=== PATIENT | female | born 1995 | race Caucasian/White ===

== ENCOUNTER 2024-09-07 10:06 | Outpatient (AMB) | payer BC, SELFPAY ==
--- NOTE | 2024-09-07 10:20 | MHC.PC.OV ---
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 Intake Note: Pt is here today as a New Patient to est care/PE Allergies No Known Allergies Allergy (Verified 09/07/24 10:35) Medication List - Last Reconciled 09/07/24 by Steff Wagner MD ascorbic acid (vitamin C) mg PO ashwagandha extract mg PO cholecalciferol (vitamin D3) 50 mcg PO DAILY ferrous sulfate 325 mg PO DAILY magnesium 250 mg PO DAILY mecobalamin (vitamin B12) 1,000 mcg sublingual BEDTIME norgestrel (Opill) 1 tab PO DAILY valerian 1,000 mg PO BEDTIME PRN Tobacco use date assessed: 09/07/24 Dental Screening Dental Screen Date: 09/07/24 Did you have a dental visit in the last 12 months?: Yes Did you have a dental problem in the last 6 months where you did not have access to dental care?: No Was dental information given to patient?: Patient has dentist HPI blood sugar est care ophthalmic dispenser HPI Details 28-year-old lady, new to practice, here to establish care with a new PCP and for physical exam. She has history of vitamin-D deficiency, IBS, generalized anxiety disorder and history of iron-deficiency anemia. Currently taking herbal supplements to help control her anxiety, does not want to start any prescription medicine at present time. She has been able to control her anxiety attacks through behavioral techniques, and previously was seen by therapist for 3 years.. She currently is on gxac-fya-dewtqre control pills, but has never had a Pap smear or pelvic exam. She is currently sexually active. She has had COVID vaccines in the past but does not want to get the booster, reminded to get her yearly flu shot, up-to-date with her Tdap [facility] Medical History (Updated 09/07/24 @ 11:00 by Steff Wagner MD) Family history of thyroid disorder History of vitamin D deficiency Irritable bowel syndrome Anxiety disorder History of iron deficiency anemia History of congenital dysplasia of hip History of cystic acne History of dislocation of shoulder Surgical History (Updated 09/07/24 @ 10:45 by Steff Wagner MD) No pertinent past surgical history Family History (Updated 09/07/24 @ 10:38 by Steff Wagner MD) Mother Hypothyroidism Diabetes mellitus Depression Father Diabetes mellitus Depression Maternal Grandmother Breast cancer, Onset Age: 80 Paternal Uncle Non-Hodgkins lymphoma Paternal Grandmother Parkinson's disease Social History (Updated 09/07/24 @ 10:43 by Steff Wagner MD) Household Members Other:: Lives with sister Housing: Apartment Are you a primary day care center director to a significant other at home: No Do you presently have visiting nurse or other home services: No Alcohol intake: never Patient Tobacco Use Status: Never used Tobacco e-Cigarette/Vaping Use: Never Used service: No Current occupational status: employed Cognitive needs: No Hearing needs: No Vision needs: Yes Questionnaire PHQ-9 Over the last 2 weeks, how often have you been bothered by any of the following problems? 1. Little interest or pleasure in doing things: not at all 2. Feeling down, depressed, or hopeless: not at all 3. Trouble falling or staying asleep, or sleeping too much: not at all 4. Feeling tired or having little energy: several days 5. Poor appetite or overeating: not at all 6. Feeling bad about yourself - or that you are a failure or have let yourself or your family down: not at all 7. Trouble concentrating on things, such as reading the newspaper or watching television: not at all 8. Moving or speaking so slowly that other people could have noticed. Or the opposite - being so fidgety or restless that you have been moving around a lot more than usual: not at all 9. Thoughts that you would be better off or of hurting yourself in some way: not at all Total score: 1 Depression Screening Interpretation: Negative Depression Screening Done: Yes 47050 - PHQ-9 Billing: Yes Source: Developed by Drs. Jerrell Warner, Lisa Trejo, Cornelio Martinez and colleagues, with an educational monica from [employer]. Thrive Questionnaire Date Thrive assessed: 08/31/24 I am a: Patient What is your living situation today?: I have a steady place to live Within the past 12 months, did the food you bought not last and you didn't have the money to get more?: Never true Within the past 12 months, did you worry whether your food would run out before you got money to buy more?: Never true Do you have trouble paying for medicines?: No Do you have trouble getting transportation to medical appointments?: No Do you have trouble paying your heating and electricity bill?: No Do you have trouble taking care of your child, family member or friend?: No Do you have trouble with day-to-day activities such as bathing, preparing meals, shopping, managing finances, etc.?: No Are you currently unemployed and looking for a job?: No Are you interested in more education?: I choose not to answer this question Please select the resources that you would like help with: None Currently or been in a relationship where the following occur: No concerns reported THRIVE Score: 0 AUDIT C Alcohol Use Questionnaire (AUDIT-C) 1. How often do you have a drink containing alcohol?: Never 2. How many drinks containing alcohol do you have on a typical day when you are drinking?: 1 or 2 3. How often do you have six or more drinks on one occasion?: Never Total Score: 0 DESRIEE-7 AMB Questionnaire DESIREE-7 Date DESIREE - 7 assessed: 09/07/24 Feeling nervous, anxious, or on edge: 2 = More than half the days Not being able to stop or control worryin = Nearly every day Worrying too much about different things: 2 = More than half the days Trouble relaxin = Several days Being so restless that it is hard to sit still: 1 = Several days Becoming easily annoyed or irritable: 1 = Several days Feeling afraid as if something awful might happen: 1 = Several days Total DESIREE-7 score (0-4 normal; 5-9 mild; 10-14 moderate; 15-21 severe): 11 Source: Developed by Drs. Jerrell Warner, Lisa Trejo, Cornelio Martinez and colleagues, with an educational monica from [employer]. DESIREE-7 Assessment Billing DESIREE-7 Assessment Tool: DESIREE-7 Assessment 29980 (Saw a therapist regularly for 3 years, not ready to start any medication at present.) Review of Systems Const Reports no additional complaints Eyes Details: Goes to [facility] eye [facility] Details: Up-to-date with her dental exams every 6 month Card Reports no additional complaints Resp Reports no additional complaints GI Denies abdominal pain, Denies change in bowel habits, Denies change in stool character and Denies heartburn Reports no additional complaints Musc Reports no additional complaints Skin/Breast Denies breast swelling, Denies breast skin changes, Denies breast pain and Denies rash Neuro Reports no additional complaints Psych Reports as per HPI Endo Reports no additional complaints Doni/Lymph Reports no additional complaints Aller/Immun Reports no additional complaints Physical exam (Primary Care) Vital Signs: Last Vital Signs Temp 99.2 F 09/07/24 10:26 Pulse 98 09/07/24 10:26 Resp 17 09/07/24 10:26 BP 124/86 09/07/24 10:26 Pulse Ox 100 09/07/24 10:26 Oxygen Delivery Method Room Air 09/07/24 10:26 BMI result Body Mass Index 34.3 Tobacco/Smoking Status: Tobacco use Status Tobacco use date assessed 09/07/24 09/07/24 10:37 Patient Tobacco Use Status Never used Tobacco 09/07/24 10:43 e-Cigarette/Vaping Use Never Used 09/07/24 10:43 PHQ-9: PHQ-9 Score PHQ-9: Total score 1 09/07/24 10:51 Depression Screening Interpretation: Negative Thrive Assessment: Date of Thrive Assessment Date Thrive assessed 08/31/24 09/07/24 10:37 Currently or been in a relationship where the following occur: No concerns reported Const General: no acute distress and alert Orientation/consciousness: patient oriented x3 HENMT Head: Yes normocephalic Ears: external ears normal, TM's normal bilaterally and EAC's normal General nose exam: Normal external nose present Mouth: Normal oral and palatal mucosa present, oropharynx normal and moist mucous membranes Eyes General: appearance normal, both eyes and all related structures Eyelids: Yes eyelids normal Conjunctivae: conjunctivae normal Sclerae: sclerae normal Pupils: Equal, round and reactive pupils present EOM: EOMs intact bilaterally Neck Neck: Yes full ROM, Yes no lymphadenopathy and Yes supple Thyroid: Thyroid normal Chest Breast/axilla palpation: normal palpation of the breasts Resp Effort & Inspection: normal respiratory effort and able to speak in complete sentences Auscultation: clear to auscultation bilaterally Cardio Rate: regular rate Rhythm: regular rhythm Heart sounds: S1 normal heart sound present and S2 normal heart sound present GI Palpation (GI): Soft to palpation, nontender, no guarding and no masses Auscultation: normal bowel sounds General: Yes no CVA tenderness Back/Spine/Pelvis Back: no CVA tenderness and No back tenderness Skin General skin exam: no rashes or lesions noted Neuro General: patient oriented x3, gait normal, moves all extremities, Normal light touch and pain sensation, no focal motor deficits and CN's II-XI intact bilaterally Cranial nerves: Yes Equal, round and reactive pupils present Cognition (Neuro): normal cognition Gait exam (Neuro): Normal gait present Motor exam (neuro): 5/5 motor strength present throughout Extrem General: Yes normal to inspection, Yes full ROM, Yes no joint enlargement, Yes no pedal edema and Yes normal gait Psych Appearance: grossly normal and well kempt Mental Status: mental status grossly normal Speech and movement: Normal speech and movement present Affect: normal affect Attitude: cooperative Thought process: Normal thought process present Thought content: Normal thought content present Coding Level of Care Code New Pt Prev Care 18-39yr(49107 Diagnoses Annual visit for general adult medical examination with abnormal findings Z00.01 Screening for malignant neoplasm of cervix Z12.4 History of iron deficiency anemia Z86.2 Anxiety disorder F41.9 History of vitamin D deficiency Z86.39 Advanced directives, counseling/discussion Z71.89 Additional Codes DESIREE-7 Assessment Billing - DESIREE-7 Assessment Tool: DESIREE-7 Assessment 69177 ([id number]) PHQ-9 - 74853 - PHQ-9 Billing: Yes ([id number]) Assessment & Plan Assessment & Plan (1) Annual visit for general adult medical examination with abnormal findings: Code(s): Z00.01 - Encounter for general adult medical examination with abnormal findings Plan: Will check appropriate labs. Recommended dental visit every 6 months and regular eye exams, at least every 2 years. Take adequate calcium in diet and vitamin-D 3 at 2000 IU per cap once a day, in addition to weight-bearing exercises to help maintain good muscle tone and weight control. Instructed to do self-breast exam, and recommended to get yearly mammogram, starting at age 40. Referred to [facility] for her routine Pap and pelvic exam. Reminded to get yearly flu vaccine, up-to-date with Tdap (2) Screening for malignant neoplasm of cervix: Code(s): Z12.4 - Encounter for screening for malignant neoplasm of cervix Plan: OBGYN referral ordered her initial cervical cancer screening and pelvic exam (3) History of iron deficiency anemia: Code(s): Z86.2 - Personal history of diseases of the blood and blood-forming organs and certain disorders involving the immune mechanism Category: Medical Plan: Ordered CBC , vitamin B12, iron profile and vitamin-D level (4) Anxiety disorder: Code(s): F41.9 - Anxiety disorder, unspecified Category: Medical Plan: Currently controlled with behavioral techniques, declines referral for therapy or starting any medication at present time. (5) History of vitamin D deficiency: Code(s): Z86.39 - Personal history of other endocrine, nutritional and metabolic disease Category: Medical Plan: Will check vitamin-D level (6) Advanced directives, counseling/discussion: Code(s): Z71.89 - Other specified counseling Plan: Initiated the conversation about Advanced Directives. Advanced Directives help patients prepare for current and future decisions about their medical treatment and place of care. Discussed with patient that it is a process where a patients current condition and prognosis are reviewed, their wishes for information regarding their illness are elicited, and likely medical dilemmas are presented and options discussed. Healthcare proxy form completed today. The form can be amended as needed, reviewed yearly and make changes as needed Orders: Orders Lipid Panel 09/07/24 F41.9 - Anxiety disorder, unspecified, K58.9 - Irritable bowel syndrome, unspecified, Z13.1 - Encounter for screening for diabetes mellitus, Z13.220 - Encounter for screening for lipoid disorders, Z83.49 - Family history of other endocrine, nutritional and metabolic diseases, Z86.2 - Personal history of diseases of the blood and blood-forming organs and certain disorders involving the immune mechanism, Z86.39 - Personal history of other endocrine, nutritional and metabolic disease Alanine Aminotransferase 09/07/24 F41.9 - Anxiety disorder, unspecified, K58.9 - Irritable bowel syndrome, unspecified, Z13.1 - Encounter for screening for diabetes mellitus, Z13.220 - Encounter for screening for lipoid disorders, Z83.49 - Family history of other endocrine, nutritional and metabolic diseases, Z86.2 - Personal history of diseases of the blood and blood-forming organs and certain disorders involving the immune mechanism, Z86.39 - Personal history of other endocrine, nutritional and metabolic disease Vitamin D 25-OH Total 09/07/24 F41.9 - Anxiety disorder, unspecified, K58.9 - Irritable bowel syndrome, unspecified, Z13.1 - Encounter for screening for diabetes mellitus, Z13.220 - Encounter for screening for lipoid disorders, Z83.49 - Family history of other endocrine, nutritional and metabolic diseases, Z86.2 - Personal history of diseases of the blood and blood-forming organs and certain disorders involving the immune mechanism, Z86.39 - Personal history of other endocrine, nutritional and metabolic disease TSH reflex Free T4 09/07/24 F41.9 - Anxiety disorder, unspecified, K58.9 - Irritable bowel syndrome, unspecified, Z13.1 - Encounter for screening for diabetes mellitus, Z13.220 - Encounter for screening for lipoid disorders, Z83.49 - Family history of other endocrine, nutritional and metabolic diseases, Z86.2 - Personal history of diseases of the blood and blood-forming organs and certain disorders involving the immune mechanism, Z86.39 - Personal history of other endocrine, nutritional and metabolic disease Vitamin B12 and Folate 09/07/24 F41.9 - Anxiety disorder, unspecified, K58.9 - Irritable bowel syndrome, unspecified, Z13.1 - Encounter for screening for diabetes mellitus, Z13.220 - Encounter for screening for lipoid disorders, Z83.49 - Family history of other endocrine, nutritional and metabolic diseases, Z86.2 - Personal history of diseases of the blood and blood-forming organs and certain disorders involving the immune mechanism, Z86.39 - Personal history of other endocrine, nutritional and metabolic disease Magnesium 09/07/24 F41.9 - Anxiety disorder, unspecified, K58.9 - Irritable bowel syndrome, unspecified, Z13.1 - Encounter for screening for diabetes mellitus, Z13.220 - Encounter for screening for lipoid disorders, Z83.49 - Family history of other endocrine, nutritional and metabolic diseases, Z86.2 - Personal history of diseases of the blood and blood-forming organs and certain disorders involving the immune mechanism, Z86.39 - Personal history of other endocrine, nutritional and metabolic disease Complete Blood Count Auto Diff 09/07/24 F41.9 - Anxiety disorder, unspecified, K58.9 - Irritable bowel syndrome, unspecified, Z13.1 - Encounter for screening for diabetes mellitus, Z13.220 - Encounter for screening for lipoid disorders, Z83.49 - Family history of other endocrine, nutritional and metabolic diseases, Z86.2 - Personal history of diseases of the blood and blood-forming organs and certain disorders involving the immune mechanism, Z86.39 - Personal history of other endocrine, nutritional and metabolic disease IRON PROFILE 09/07/24 F41.9 - Anxiety disorder, unspecified, K58.9 - Irritable bowel syndrome, unspecified, Z13.1 - Encounter for screening for diabetes mellitus, Z13.220 - Encounter for screening for lipoid disorders, Z83.49 - Family history of other endocrine, nutritional and metabolic diseases, Z86.2 - Personal history of diseases of the blood and blood-forming organs and certain disorders involving the immune mechanism, Z86.39 - Personal history of other endocrine, nutritional and metabolic disease Basic Metabolic Panel Fasting 09/07/24 F41.9 - Anxiety disorder, unspecified, K58.9 - Irritable bowel syndrome, unspecified, Z13.1 - Encounter for screening for diabetes mellitus, Z13.220 - Encounter for screening for lipoid disorders, Z83.49 - Family history of other endocrine, nutritional and metabolic diseases, Z86.2 - Personal history of diseases of the blood and blood-forming organs and certain disorders involving the immune mechanism, Z86.39 - Personal history of other endocrine, nutritional and metabolic disease Aspartate Amino Transferase 09/07/24 F41.9 - Anxiety disorder, unspecified, K58.9 - Irritable bowel syndrome, unspecified, Z13.1 - Encounter for screening for diabetes mellitus, Z13.220 - Encounter for screening for lipoid disorders, Z83.49 - Family history of other endocrine, nutritional and metabolic diseases, Z86.2 - Personal history of diseases of the blood and blood-forming organs and certain disorders involving the immune mechanism, Z86.39 - Personal history of other endocrine, nutritional and metabolic disease Referrals [facility] Referral Z12.4 - Encounter for screening for malignant neoplasm of cervix
[2024-09-07 10:26] VITALS: BP 124/86; PULSE 98; RESP 17; TEMP 37.3; O2SAT 100; BMI 34.3
== END 2024-09-07 11:12 | disposition home or self-care (01) ==
PROVIDERS: PCP Internal Medicine; Visit Provider Internal Medicine
DX: Z00.01 Encounter for general adult medical examination with abnormal findings (principal); Z12.4 Encounter for screening for malignant neoplasm of cervix; Z86.2 Personal history of diseases of the blood and blood-forming organs and certain disorders involving the immune mechanism; F41.9 Anxiety disorder, unspecified; Z86.39 Personal history of other endocrine, nutritional and metabolic disease; Z71.89 Other specified counseling

== ENCOUNTER → 2024-09-07 10:06 | Outpatient (BNVA) | payer BC, SELFPAY | PROVIDERS: Visit Provider Internal Medicine | DX: Z00.01 Encounter for general adult medical examination with abnormal findings (principal); F41.9 Anxiety disorder, unspecified; Z86.2 Personal history of diseases of the blood and blood-forming organs and certain disorders involving the immune mechanism; Z86.39 Personal history of other endocrine, nutritional and metabolic disease; Z71.89 Other specified counseling | CPT/HCPCS: 96127 ==

== ENCOUNTER 2025-01-26 06:22 | Outpatient (REF) | payer BC, SELFPAY ==
--- OUTSIDE RECORDS SUMMARY | 2025-01-26 06:26 | XMS_ITS | Encounter Summary ---
Author Organization [facility] Address [address] [place] [address] Care Team Providers Care Sleeve Ironer Name Role Phone Maura Bee MD Primary Care Provider [phone] Encounter Details Date Type Department Care Team (Late st Contact Info) Description 06/24/2022 Community Orders [facility] [address] [place] [address] Rina Mccarthy PA [address] [place] [address] Routine general medical examination at a health care facility (Primary Dx) Social History Tobacco Use Types Packs/Day Years Used Date Smoking Tobacco: Never Assessed Comments Unknown Sex and Gender Information Value Date Recorded Sex Assigned at Not on file Legal Sex Female 18:20 EST Gender Identity Not on file Sexual Orientation Not on file documented as of this encounter Plan of Treatment Not on file documented as of this encounter Results * VITAMIN B12 (06/24/2022 7:00 EST) Vitamin B12 378 211 - 911 pg/mL 06/24/2022 14:13 EST [facility] Blood VENOUS BLOOD / Unknown Venipuncture / Unknown 06/24/2022 7:00 EST 06/24/2022 12:44 EST Narrative [facility] - 06/24/2022 14:13 EST The results of this assay can be falsely elevated due to the consumption of Biotin. Rina XIE CHEMISTRY & BLOOD GAS ORDERAB LES Final Result [facility] [address] [place] [address] * COMPREHENSIVE METABOLIC PANEL (CMP) (06/24/2022 7:00 EST) Sodium 140 136 - 145 mmol/L 06/24/2022 13:20 [facility] Potassium 4.2 3.5 - 5.0 mmol/L 06/24/2022 13:20 [facility] Chloride 105 96 - 110 mmol/L 06/24/2022 13:20 [facility] CO2 Total 24 22 - 32 mmol/L 06/24/2022 13:20 [facility] Glucose 78 70 - 100 mg/dL 06/24/2022 13:20 [facility] BUN 13 10 - 26 mg/dL 06/24/2022 13:20 [facility] Creatinine 0.58 0.52 - 1.04 mg/dL 06/24/2022 13:20 [facility] eGFR 130 >60 mL/min/1.7 3m2 06/24/2022 13:20 [facility] Total Protein 7.3 6.3 - 8.2 g/dL 06/24/2022 13:20 [facility] Albumin 4.3 3.4 - 4.9 g/dL 06/24/2022 13:20 [facility] Alkaline Phosphatase 86 38 - 126 U/L 06/24/2022 13:20 [facility] AST 23 15 - 46 U/L 06/24/2022 13:20 [facility] ALT 17 <35 U/L 06/24/2022 13:20 [facility] Bilirubin, Total 0.2 <1.4 mg/dL 06/24/20 13:20 [facility] Calcium 8.8 8.5 - 10.5 mg/dL 06/24/2022 13:20 [facility] Albumin/Globulin Ratio 1.4 1.0 - 2.5 06/24/2022 13:20 [facility] Anion Gap 11 5 - 14 06/24/2022 13:20 [facility] Blood VENOUS BLOOD / Unknown Venipuncture / Unknown 06/24/2022 7:00 EST 06/24/2022 12:44 EST us Rina XIE CHEMISTRY & BLOOD GAS ORDERAB LES Final Result Performing Organization Address [facility]/State/ZIP Co de Phone Number [facility] [address] [place] [address] * LIPID PROFILE (INCLUDES CHOLESTEROL, TRIGLYCERIDES, HDL, LDL) (06/24/2022 7:00 EST) Cholesterol 138 <200 mg/dL 06/24/2022 13:20 [facility] Comment:Note that therapeuti c goals will differ between patients based on cardiac risk factors and current medical therapy. HDL 52 >=50 mg/dL 06/24/2022 13:20 [facility] Comment:Note that therapeuti c goals will differ between patients based on cardiac risk factors and current medical therapy. LDL, Calculated 66 <160 mg/dL 13:20 [facility] Comment:Note that therapeuti c goals will differ between patients based on cardiac risk factors and current medical therapy. Triglyceride 101 <=150 mg/dL 06/24/2022 13:20 [facility] Comment:Note that therapeuti c goals will differ between patients based on cardiac risk factors and current medical therapy. Chol/HDL Ratio 2.7 See Note 06/24/2022 13:20 [facility] Comment: NOTE: Desirable Ratio = <4.1 Patient At Risk Ratio = >5.0(Males) >6.0(Females) Non HDL Cholesterol 86 <160 mg/dL 06/24/2022 13:20 [facility] Comment:Note that therapeuti c goals will differ between patients based on cardiac risk factors and current medical therapy. Blood VENOUS BLOOD / Unknown Venipuncture / Unknown 06/24/2022 7:00 EST 06/24/2022 12:44 EST us Rina XIE CHEMISTRY & BLOOD GAS ORDERAB LES Final Result [facility] [address] [place] [address] documented in this encounter Visit Diagnoses Diagnosis Routine general medical examination at a health care facility- Primary documented in this encounter Care Teams Sleeve Ironer Relationship Specialty Start Date End Date Maura Bee MD [address] [place] [address] PCP - General 05/12/15 documented as of this encounter
[2025-01-26 10:16] LABS: MANUAL DIFF FLAG NO
[2025-01-26 10:20] LABS: Hematocrit 39.3 % (37.0-47.0); Hemoglobin 13.2 g/dl (12.0-16.0); Imm Gran Abs Auto 0.03 X10*3/uL (0.00-0.03); Imm Gran Pct Auto 0.3 % (0.0-0.4); Lymphocytes Absolute Auto 2.1 X10*3/uL (1.2-4.9); Mean Corpuscular HGB Conc 33.6 g/dl (31.0-35.0); Mean Corpuscular Hemoglobin 29.5 pg (27.0-33.0); Mean Corpuscular Volume 87.9 fL (80.0-98.0); NRBC Abs Auto 0.000 X10*3/uL (0.0-0.012); NRBC Pct Auto 0.0 /100WBC (0.0-0.2); Platelet Count 292 X10*3/uL (160-400); Red Blood Count 4.47 X10*6/uL (4.20-5.50); White Blood Count 9.2 X10*3/uL (4.8-10.8)
[2025-01-26 10:58] LABS: Alanine Aminotransferase 19 U/L (0-31); Anion Gap 12 (12-20); Aspartate Amino Transferase 23 U/L (5-31); Blood Urea Nitrogen 12 mg/dL (9-16); Calcium 9.4 mg/dL (8.4-10.2); Carbon Dioxide 25 mmol/L (22-29); Chloride 107 mmol/L (96-108); Cholesterol 136 mg/dL (<200); Estimated Glomerular Filt Rate > 60; HDL Cholesterol 39 mg/dL (>40); Iron 70 mcg/dL (30-160); Magnesium 2.0 mg/dL (1.6-2.6); Percent Iron Saturation 24 % (15-50); Potassium 4.0 mmol/L (3.3-5.1); Sodium 140 mmol/L (135-145); Total Iron Binding Capacity 286 mcg/dL (228-428); Triglycerides 102 mg/dL (<150); Unsaturated Iron Binding 216 ug/dL
[2025-01-26 11:10] LABS: Folate 11.7 ng/mL (> or = 4.0); Vitamin B12 749 pg/mL (200-900)
== END 2025-01-26 06:23 | disposition home or self-care (01) ==
LOC: HO.HMGCLDS 06:22
PROVIDERS: PCP Internal Medicine; Visit Provider Internal Medicine
DX: F41.1 Generalized anxiety disorder (principal); K58.9 Irritable bowel syndrome, unspecified; Z13.31 Encounter for screening for depression; Z13.39 Encounter for screening examination for other mental health and behavioral disorders; Z86.2 Personal history of diseases of the blood and blood-forming organs and certain disorders involving the immune mechanism; Z86.39 Personal history of other endocrine, nutritional and metabolic disease; Z83.49 Family history of other endocrine, nutritional and metabolic diseases; Z13.220 Encounter for screening for lipoid disorders; Z13.1 Encounter for screening for diabetes mellitus
CPT/HCPCS: 36415; 80048; 80061; 82306; 82607; 82746; 83540; 83735; 84443; 84450; 84460; 85025; 96127

== ENCOUNTER 2025-01-26 08:25 | Outpatient (AMB) | payer BC, SELFPAY ==
--- NOTE | 2025-01-26 08:27 | MHC.PC.OV ---
Intake Visit Reasons: anxiety medications Head Swamper Required: No Allergies No Known Allergies Allergy (Verified 01/26/25 08:58) Medication List - Last Reconciled 01/26/25 by Steff Wagner MD ascorbic acid (vitamin C) mg PO ashwagandha extract mg PO cholecalciferol (vitamin D3) 50 mcg PO DAILY ferrous sulfate 325 mg PO DAILY magnesium 250 mg PO DAILY mecobalamin (vitamin B12) 1,000 mcg sublingual BEDTIME norgestrel (Opill) 1 tab PO DAILY valerian 1,000 mg PO BEDTIME PRN Tobacco use date assessed: 09/07/24 Dental Screening Dental Screen Date: 09/07/24 HPI anxiety medications HPI Details - The patient is a 29-year-old female presenting with anxiety and stress related to starting school. - She reports anxiety and stress dreams about starting school, which is scheduled to begin in a month. - She has anxiety over her relationship status, despite having discussed these concerns with her partner. - The patient has not been in therapy for over a year, having previously found it helpful for dealing with burnout and anxiety. 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 - The patient is considering starting an anxiety medication that does not require buildup in the system, such as Lexapro. [facility] Medical History Family history of thyroid disorder History of vitamin D deficiency Irritable bowel syndrome Anxiety disorder History of iron deficiency anemia History of congenital dysplasia of hip History of cystic acne History of dislocation of shoulder Surgical History No pertinent past surgical history Family History Mother Hypothyroidism Diabetes mellitus Depression Father Diabetes mellitus Depression Maternal Grandmother Breast cancer, Onset Age: 80 Paternal Uncle Non-Hodgkins lymphoma Paternal Grandmother Parkinson's disease Social History Household Members Other:: Lives with sister Housing: Apartment Are you a primary critical care physician to a significant other at home: No Do you presently have visiting nurse or other home services: No Alcohol intake: never Patient Tobacco Use Status: Never used Tobacco e-Cigarette/Vaping Use: Never Used service: No Current occupational status: employed Cognitive needs: No Hearing needs: No Vision needs: Yes Questionnaire PHQ-9 Over the last 2 weeks, how often have you been bothered by any of the following problems? 1. Little interest or pleasure in doing things: not at all 2. Feeling down, depressed, or hopeless: not at all 3. Trouble falling or staying asleep, or sleeping too much: not at all 4. Feeling tired or having little energy: several days 5. Poor appetite or overeating: not at all 6. Feeling bad about yourself - or that you are a failure or have let yourself or your family down: not at all 7. Trouble concentrating on things, such as reading the newspaper or watching television: not at all 8. Moving or speaking so slowly that other people could have noticed. Or the opposite - being so fidgety or restless that you have been moving around a lot more than usual: not at all 9. Thoughts that you would be better off or of hurting yourself in some way: not at all Total score: 1 Depression Screening Interpretation: Negative Depression Screening Done: Yes 64421 - PHQ-9 Billing: Yes Source: Developed by Drs. Jerrell Warner, Lisa Trejo, Cornelio Martinez and colleagues, with an educational monica from [employer]. Thrive Questionnaire Date Thrive assessed: 08/31/24 DESIREE-7 AMB Questionnaire DESIREE-7 Date DESIREE - 7 assessed: 01/26/25 Feeling nervous, anxious, or on edge: 2 = More than half the days Not being able to stop or control worryin = More than half the days Worrying too much about different things: 1 = Several days Trouble relaxin = Several days Being so restless that it is hard to sit still: 1 = Several days Becoming easily annoyed or irritable: 1 = Several days Feeling afraid as if something awful might happen: 1 = Several days Total DESIREE-7 score (0-4 normal; 5-9 mild; 10-14 moderate; 15-21 severe): 9 Source: Developed by Drs. Jerrell Warner, Cornelio Cobbke and colleagues, with an educational monica from [employer]. DESIREE-7 Assessment Billing DESIREE-7 Assessment Tool: DESIREE-7 Assessment 30240 Review of Systems Const Reports no additional complaints Eyes Details: Goes to [facility] eye ENT Details: Up-to-date with her dental exams every 6 month Card Reports no additional complaints Resp Reports no additional complaints GI Denies abdominal pain, Denies change in bowel habits, Denies change in stool character and Denies heartburn Reports no additional complaints Musc Reports no additional complaints Skin/Breast Denies rash Neuro Reports no additional complaints Psych Reports as per HPI Endo Reports no additional complaints Doni/Lymph Reports no additional complaints Aller/Immun Reports no additional complaints Physical exam (Primary Care) Tobacco/Smoking Status: Tobacco use Status Tobacco use date assessed 09/07/24 01/26/25 08:28 Patient Tobacco Use Status Never used Tobacco 01/26/25 08:28 e-Cigarette/Vaping Use Never Used 01/26/25 08:28 PHQ-9: PHQ-9 Score PHQ-9: Total score 1 01/26/25 08:38 Depression Screening Interpretation: Negative Thrive Assessment: Date of Thrive Assessment Date Thrive assessed 08/31/24 01/26/25 08:28 Telehealth Telehealth Telehealth Platform: [facility] Location of provider rendering services: practice address Location of patient: address on file Patient Identification confirmed using: Name, : Yes Telehealth method: video Patient verbally consented to treatment: Yes Patient verbally consented to billing insurance company: Yes Patient informed of any privacy concerns related to visit: Yes Minutes spent on Phone/Video with Pt.: 15 Coding Level of Care Code Tele Est Pt Level 4 (99703) Diagnoses Generalized anxiety disorder F41.1 Anxiety disorder type: generalized anxiety disorder Additional Codes DESIREE-7 Assessment Billing - DESIREE-7 Assessment Tool: DESIREE-7 Assessment 07116 ([id number]) PHQ-9 - 98232 - PHQ-9 Billing: Yes ([id number]) Assessment & Plan Assessment & Plan (1) Anxiety disorder: Code(s): F41.9 - Anxiety disorder, unspecified Category: Medical Qualifiers: Anxiety disorder type: generalized anxiety disorder Qualified Code(s): F41.1 - Generalized anxiety disorder Plan: The patient will start on escitalopram 5 mg daily to manage her anxiety, with the option to adjust the dose based on her response. She is advised to avoid taking Ashwagandha and Valerian while on escitalopram due to potential interactions and the need for liver monitoring. A telehealth appointment with a therapist is recommended to provide additional support, with arrangements to be made by Rocio Little. Follow-up is scheduled for four weeks to assess the effectiveness of the medication and adjust the treatment plan as necessary. Patient was informed and verbally consented to the use of an ambient scribe for clinic note documentation during this visit. Medications: New escitalopram oxalate 5 mg PO DAILY 30 tabs 1RF
== END 2025-01-26 12:41 | disposition home or self-care (01) ==
LOC: HO.HMCC 08:25
PROVIDERS: PCP Internal Medicine; Visit Provider Internal Medicine
DX: F41.1 Generalized anxiety disorder (principal)

== ENCOUNTER 2025-02-23 08:08 | Outpatient (AMB) | payer BC, SELFPAY ==
--- NOTE | 2025-02-23 08:05 | A.OFFPC_ITS ---
Intake Visit Reasons: anxiety medications Allergies No Known Allergies Allergy (Verified 02/23/25 08:20) Medication List - Last Reconciled 02/23/25 by Steff Wagner MD ascorbic acid (vitamin C) mg PO cholecalciferol (vitamin D3) 50 mcg PO DAILY escitalopram oxalate 5 mg PO DAILY ferrous sulfate 325 mg PO DAILY magnesium 250 mg PO DAILY mecobalamin (vitamin B12) 1,000 mcg sublingual BEDTIME norgestrel (Opill) 1 tab PO DAILY Tobacco use date assessed: 02/23/25 Dental Screening Dental Screen Date: 02/23/25 Did you have a dental visit in the last 12 months?: Yes Did you have a dental problem in the last 6 months where you did not have access to dental care?: No Was dental information given to patient?: Patient has dentist HPI anxiety medications HPI Details - The patient is a 29-year-old female pr esenting today for follow-up on her generalized anxiety disorder and anemia - Anxiety: The patient experiences less anxiety attacks and finds it more manageable since she has started escitalopram 5 mg daily which he takes at bedtime. Denies any adverse effects from taking the medication. - Anemia: The patient is on iron supplem ents, with hemoglobin/hematocrit levels now within normal limits. She reports light but prolonged menstrual periods. Recent blood work, including CBC, cholesterol, vitamin D, and thyroid levels, were normal. [facility] Medical History (Updated 02/23/25 @ 08:34 by Steff Wagner MD) History of iron deficiency anemia History of vitamin D deficiency Irritable bowel syndrome Anxiety disorder History of congenital dysplasia of hip History of cystic acne History of dislocation of shoulder Surgical History No pertinent past surgical history Family History Mother Hypothyroidism Diabetes mellitus Depression Father Diabetes mellitus Depression Maternal Grandmother Breast cancer, Onset Age: 80 Paternal Uncle Non-Hodgkins lymphoma Paternal Grandmother Parkinson's disease Social History Household Members Other:: Lives with sister Housing: Apartment Are you a primary ocular care technologist to a significant other at home: No Do you presently have visiting nurse or other home services: No Alcohol intake: never Patient Tobacco Use Status: Never used Tobacco e-Cigarette/Vaping Use: Never Used service: No Current occupational status: employed Cognitive needs: No Hearing needs: No Vision needs: Yes Questionnaire Thrive Questionnaire Date Thrive assessed: 08/31/24 DESIREE-7 AMB Questionnaire DESIREE-7 Date DESIREE - 7 assessed: 02/23/25 Feeling nervous, anxious, or on edge: 1 = Several days Not being able to stop or control worryin = Not at all Worrying too much about different things: 0 = Not at all Trouble relaxin = Not at all Being so restless that it is hard to sit still: 0 = Not at all Becoming easily annoyed or irritable: 0 = Not at all Feeling afraid as if something awful might happen: 0 = Not at all Total DESIREE-7 score (0-4 normal; 5-9 mild; 10-14 moderate; 15-21 severe): 1 Source: Developed by Drs. Jerrell Warner, Lisa Trejo, Cornelio Martinez and colleagues, with an educational monica from [employer]. DESIREE-7 Assessment Billing DESIREE-7 Assessment Tool: DESIREE-7 Assessment 25308 Review of Systems Const Reports no additional complaints Eyes Details: Goes to [facility] eye ENT Details: Up-to-date with her dental exams every 6 month Card Reports no additional complaints Resp Reports no additional complaints GI Denies abdominal pain, Denies change in bowel habits, Denies change in stool character and Denies heartburn Reports no additional complaints Musc Reports no additional complaints Skin/Breast Denies rash Neuro Reports no additional complaints Psych Reports as per HPI Endo Reports no additional complaints Doni/Lymph Reports no additional complaints Aller/Immun Reports no additional complaints Physical exam (Primary Care) Tobacco/Smoking Status: Tobacco use Status Tobacco use date assessed 02/23/25 02/23/25 08:07 Patient Tobacco Use Status Never used Tobacco 02/23/25 08:07 e-Cigarette/Vaping Use Never Used 02/23/25 08:07 Thrive Assessment: Date of Thrive Assessment Date Thrive assessed 08/31/24 02/23/25 08:07 Telehealth Telehealth Telehealth Platform: [facility] Location of provider rendering services: practice address Location of patient: address on file Patient Identification confirmed using: Name, : Yes Telehealth method: video Patient verbally consented to treatment: Yes Patient verbally consented to billing insurance company: Yes Patient informed of any privacy concerns related to visit: Yes Minutes spent on Phone/Video with Pt.: 15 Coding Level of Care Code Tele Est Pt Level 4 (75583) Diagnoses Generalized anxiety disorder F41.1 Anxiety disorder type: generalized anxiety disorder History of iron deficiency anemia Z86.2 Additional Codes DESIREE-7 Assessment Billing - DESIREE-7 Assessment Tool: DESIREE-7 Assessment 52888 ([id number]) Assessment & Plan Assessment & Plan (1) Anxiety disorder: Code(s): F41.9 - Anxiety disorder, unspecified Category: Medical Qualifiers: Anxiety disorder type: generalized anxiety disorder Qualified Code(s): F41.1 - Generalized anxiety disorder Plan: continue taking escitalopram 5 mg daily to manage anxiety disorder . A prescription for 90 tablets with two refills has been sent to [email or web address] pharmacy in [place] The patient is advised to maintain adherence to the medication schedule, especially when out late, to avoid missed doses. (2) History of iron deficiency anemia: Code(s): Z86.2 - Personal history of diseases of the blood and blood-forming organs and certain disorders involving the immune mechanism Category: Medical Plan: She is currently taking [id number] iron supplements, and her hemoglobin/hematocrit levels are normal. She may continue the supplements, if she experiences fatigue especially if she has prolonged menstrual bleeding. Additionally, she should maintain a balanced diet to support her iron levels. Plan Patient was informed and verbally consented to the use of an ambient scribe for clinic note documentation during this visit.
== END 2025-02-23 15:16 | disposition home or self-care (01) ==
LOC: HO.HMCC 08:08
PROVIDERS: PCP Internal Medicine; Visit Provider Internal Medicine
DX: F41.1 Generalized anxiety disorder (principal); Z86.2 Personal history of diseases of the blood and blood-forming organs and certain disorders involving the immune mechanism

== ENCOUNTER → 2025-02-23 08:08 | Outpatient (BNVA) | payer BC, SELFPAY | PROVIDERS: PCP Internal Medicine; Visit Provider Internal Medicine | DX: F41.1 Generalized anxiety disorder (principal); Z86.2 Personal history of diseases of the blood and blood-forming organs and certain disorders involving the immune mechanism | CPT/HCPCS: 96127 ==

== ENCOUNTER 2025-04-25 14:00 | Outpatient (AMB) | payer BC, SELFPAY ==
--- NOTE | 2025-04-25 14:01 | MHC.OFFVIS ---
Vital Signs 04/25/25 14:09 Height 5 ft 5 in Weight 174 lb BMI 29.0 BP 132/72 Intake Visit Reasons: New patient Annual Commercial Front Load Driver: Commercial Front Load Driver Present (Carmen) Accompanied by: Self / Same As Patient Allergies No Known Allergies Allergy (Verified 04/25/25 14:08) Medication List - Last Reconciled 04/25/25 by Yamilka Alvarado CNM cholecalciferol (vitamin D3) 50 mcg PO DAILY escitalopram oxalate 5 mg PO DAILY ferrous sulfate 325 mg PO DAILY magnesium 250 mg PO DAILY mecobalamin (vitamin B12) 1,000 mcg sublingual BEDTIME norgestrel (Opill) 1 tab PO DAILY Is last menstrual period known: Yes Last menstrual period: 04/01/25 Post menopausal: No Patient : No HPI HPI New patient Annual: Details: This is a new supervisor irrigation visit for this patient. She has never had a pelvic exam before and she is a little bit nervous. She is involved with a partner in a steady relationship and things are good she is sexually active. She is currently using the OC pill which is [id number]. She has been on these for several months now, she has been getting longest periods that are going from light actual bleeding to a brownish discharge that lasts for quite a while. She would be interested in switching to combination OCPs if they can be prescribed. She has had issues with high blood pressure in the past that often are attributed to anxiety she recently started on Lexapro to do with anxiety and is finding that it is helpful and she has a therapist as well. She and her partner both are working on losing weight and restricting calories and trying to eat healthy and they are both having success with it together. She has lost from 210 lb to 174 today. She works as a teacher teaching geometry in high school. [facility] Medical History History of iron deficiency anemia History of vitamin D deficiency Irritable bowel syndrome Anxiety disorder History of congenital dysplasia of hip History of cystic acne History of dislocation of shoulder Surgical History No pertinent past surgical history Family History Mother Hypothyroidism Diabetes mellitus Depression Father Diabetes mellitus Depression Maternal Grandmother Breast cancer, Onset Age: 80 Paternal Uncle Non-Hodgkins lymphoma Paternal Grandmother Parkinson's disease Social History (Updated 04/25/25 @ 14:05 by Carmen Medrano MA) Household Members Other:: Lives with sister Housing: Apartment Are you a primary day care home provider to a significant other at home: No Do you presently have visiting nurse or other home services: No Alcohol intake: never Patient Tobacco Use Status: Never used Tobacco e-Cigarette/Vaping Use: Never Used service: No Current occupational status: employed Current occupation: inclusion special education teacher Cognitive needs: No Hearing needs: No Vision needs: Yes Female Reproductive History Menstrual Age of Menarche: 14 Duration of menses: other (Ended April 17) Date of last menstrual period: 04/01/25 control method: none Total pregnancies: 0 Physical Exam Vital Signs: Last Vital Signs BP 132/72 04/25/25 14:09 BMI result Body Mass Index 29.0 Const General: healthy appearing, comfortable, no acute distress, well developed and alert Nutritional Appearance: average body habitus Orientation/consciousness: patient oriented x3 Limitations: no limitations HEENT Head: Yes normocephalic Neck Neck: Yes normal visual inspection Chest Chest palpation & inspection: normal inspection of the chest Breast/axilla inspection: normal inspection of the breasts and normal inspection of the axillae Breast/axilla palpation: normal palpation of the breasts and normal palpation of the axillae Resp Effort & Inspection: normal respiratory effort GI Inspection: Yes normal to inspection, No Abdominal wall edema and No distended Palpation (GI): Soft to palpation and nontender Other: External exam within normal limits vagina is pink and moist nulliparous cervix is pink smooth long thick closed midposition with thickened clear cervical mucus consistent with OCP use. Uterus is small midposition mobile nontender adnexa nontender nonenlarged good muscle tone noted. General: Yes bladder normal to palpation External Female Exam: normal external appearance and normal appearance of the urethra Speculum Exam - Vagina: normal appearance of the vagina, normal palpation and normal vaginal discharge Speculum Exam - Cervix: normal appearance of the cervix, normal palpation and nontender Bimanual exam- vagina & uterus: normal bimanual exam, normal palpation, uterine size normal, bladder normal to palpation, consistency normal, normal palpation, uterine mobility normal, uterine shape normal, No Cervical tenderness present, non-tender and no cervical motion tenderness Bimanual Exam- Adnexa, other: normal adnexae, no masses, normal and No adnexal tenderness Neuro General: patient oriented x3 Assessment & Plan Assessment & Plan (1) Well woman exam with routine gynecological exam: Code(s): Z01.419 - Encounter for gynecological examination (general) (routine) without abnormal findings Category: Medical (2) Screen for sexually transmitted diseases: Code(s): Z11.3 - Encounter for screening for infections with a predominantly sexual mode of transmission Category: Medical (3) Cervical cancer screening: Code(s): Z12.4 - Encounter for screening for malignant neoplasm of cervix Category: Medical (4) Counseling for control, oral contraceptives: Code(s): Z30.09 - Encounter for other general counseling and advice on contraception Category: Medical (5) Overweight (BMI 25.0-29.9): Comment: Is actively working on weight loss with her partner and has lost from 210-174 so far. Code(s): E66.3 - Overweight Category: Medical Plan -----Discussed in this visit the following: healthy balanced diet, regular and consistent exercise, getting recommended health screens, doing the best she can for her particular health concerns, kegel exercises, pap smear screening and followup recommendations, mammography screening and SBE, normal changes in cycles in her life stage--- . Congratulated on her hard work and her efforts to lose weight which are meeting with success. Discussed her family history which involves her father with diabetes and her personal history of hypertension. We will see her again in about 3 months to see how she is doing on the new pills and with her blood pressure. Discussed the risks of OCPs including blood clots. Her father just recently had some blood clots in if he turns out to have some genetic proclivity I recommend that she also get screened for it. She feels very confident with her pill use. Discussed and offered other testing she accepted the testing during the exam declined blood work. We will see her in 3 months and see how she is doing on the pills. Medications: New desog-e.estradiol/e.estradiol 0.15-0.02 mgx21 /0.01 mg x 5 1 tab PO DAILY 84 tabs 4RF Coding Level of Care Code New Pt Prev Care 18-39yr(24766 Diagnoses Well woman exam with routine gynecological exam Z01.419 Screen for sexually transmitted diseases Z11.3 Cervical cancer screening Z12.4 Counseling for control, oral contraceptives Z30.09 Overweight (BMI 25.0-29.9) E66.3
[2025-04-25 14:09] VITALS: BP 132/72; BMI 29.0
--- OUTSIDE RECORDS SUMMARY | 2025-04-25 20:05 | XMS_ITS | Encounter Summary ---
Author Organization [facility] Address [address] [place] [address] Care Team Providers Care Ship Fastener Name Role Phone Maura Bee MD Primary Care Provider [phone] Encounter Details Date Type Department Care Team (Late st Contact Info) Description 06/24/2022 Orders Only [facility] [address] [place] [address] Rina Mccarthy PA [address] [place] [address] Routine general medical examination at a health care facility Social History Tobacco Use Types Packs/Day Years Used Date Smoking Tobacco: Never Assessed Comments Unknown Sex and Gender Information Value Date Recorded Sex Assigned at Not on file Legal Sex Female 18:20 EST Gender Identity Not on file Sexual Orientation Not on file documented as of this encounter Plan of Treatment Not on file documented as of this encounter Procedures Procedure Name Priority Date/Time Associated Diagnosis Comments VITAMIN B12 Routine 06/24/2022 7:00 EST Routine general medical examination at a health care facility LIPID PROFILE (INCLUDES CHOLESTEROL, TRIGLYCERIDES, HDL, LDL) Routine 06/24/2022 7:00 EST Routine general medical examination at a health care facility COMPREHENSIVE METABOLIC PANEL (CMP) Routine 06/24/2022 7:00 EST Routine general medical examination at a health care facility documented in this encounter Results * LIPID PROFILE (INCLUDES CHOLESTEROL, TRIGLYCERIDES, HDL, LDL) (06/24/2022 7:00 EST) Pathologist [facility] Cholesterol 138 <200 mg/dL 06/24/2022 13:20 [facility] Comment:Note that therapeuti c goals will differ between patients based on cardiac risk factors and current medical therapy. HDL 52 >=50 mg/dL 06/24/2022 13:20 [facility] Comment:Note that therapeuti c goals will differ between patients based on cardiac risk factors and current medical therapy. LDL, Calculated 66 <160 mg/dL 13:20 [facility] Comment:Note that therapeuti c goals will differ between patients based on cardiac risk factors and current medical therapy. Triglyceride 101 <=150 mg/dL 06/24/2022 13:20 [facility] Comment:Note that therapeuti c goals will differ between patients based on cardiac risk factors and current medical therapy. Chol/HDL Ratio 2.7 See Note 06/24/2022 13:20 [facility] Comment: NOTE: Desirable Ratio = <4.1 Patient At Risk Ratio = >5.0(Males) >6.0(Females) Non HDL Cholesterol 86 <160 mg/dL 06/24/2022 13:20 [facility] Comment:Note that therapeuti c goals will differ between patients based on cardiac risk factors and current medical therapy. Blood VENOUS BLOOD / Unknown Venipuncture / Unknown 06/24/2022 7:00 EST 06/24/2022 12:44 EST Rina XIE CHEMISTRY & BLOOD GAS ORDERAB LES Final Result Performing Organization Address City/State/[facility] Co de Phone Number [facility] [address] [place] [address] * COMPREHENSIVE METABOLIC PANEL (CMP) (06/24/2022 7:00 EST) [facility] Sodium 140 136 - 145 mmol/L 06/24/2022 13:20 [facility] Potassium 4.2 3.5 - 5.0 mmol/L 06/24/2022 13:20 [facility] Chloride 105 96 - 110 mmol/L 06/24/2022 13:20 [facility] CO2 Total 24 22 - 32 mmol/L 06/24/2022 13:20 [facility] Glucose 78 70 - 100 mg/dL 06/24/2022 13:20 [facility] BUN 13 10 - 26 mg/dL 06/24/2022 13:20 [facility] Creatinine 0.58 0.52 - 1.04 mg/dL 06/24/2022 13:20 [facility] eGFR 130 >60 mL/min/1.7 3m2 06/24/2022 13:20 [facility] Total Protein 7.3 6.3 - 8.2 g/dL 06/24/2022 13:20 [facility] Albumin 4.3 3.4 - 4.9 g/dL 06/24/2022 13:20 [facility] Alkaline Phosphatase 86 38 - 126 U/L 06/24/2022 13:20 [facility] AST 23 15 - 46 U/L 06/24/2022 13:20 [facility] ALT 17 <35 U/L 06/24/2022 13:20 [facility] Bilirubin, Total 0.2 <1.4 mg/dL 06/24/20 13:20 [facility] Calcium 8.8 8.5 - 10.5 mg/dL 06/24/2022 13:20 [facility] Albumin/Globulin Ratio 1.4 1.0 - 2.5 06/24/2022 13:20 [facility] Anion Gap 11 5 - 14 06/24/2022 13:20 [facility] Blood VENOUS BLOOD / Unknown Venipuncture / Unknown 06/24/2022 7:00 EST 06/24/2022 12:44 EST us Rina XIE CHEMISTRY & BLOOD GAS ORDERAB LES Final Result [facility] [address] [place] [address] * VITAMIN B12 (06/24/2022 7:00 EST) Vitamin B12 378 211 - 911 pg/mL 06/24/2022 14:13 EST [facility] Blood VENOUS BLOOD / Unknown Venipuncture / Unknown 06/24/2022 7:00 EST 06/24/2022 12:44 EST Narrative [facility] - 06/24/2022 14:13 EST The results of this assay can be falsely elevated due to the consumption of Biotin. us Rina XIE CHEMISTRY & BLOOD GAS ORDERAB LES Final Result [facility] [address] [place] [address] documented in this encounter Visit Diagnoses Diagnosis Routine general medical examination at a health care facility documented in this encounter Care Teams Ship Fastener Relationship Specialty Start Date End Date Maura Bee MD [address] [place] [address] PCP - General 05/12/15 documented as of this encounter
--- OUTSIDE RECORDS SUMMARY | 2025-04-25 20:05 | XMS_ITS | Encounter Summary ---
Author Organization [facility] Address [address] [place] [address] Care Team Providers Care Meat Processor Name Role Phone Maura Bee MD Primary Care Provider [phone] Encounter Details Date Type Department Care Team (Late st Contact Info) Description 07/01/2022 Community Orders [facility] [address] [place] [address] Rina Mccarthy PA [address] [place] [address] Vitamin D deficiency (Primary Dx) Social History Tobacco Use Types [...] as of this encounter Results * VITAMIN D (25,OH) (06/24/2022 12:49 EST) 25OH Vitamin D Tot 53 30 - 100 ng/mL 07/01/2022 14:26 EST [facility] Comment: Vitamin D 25,OH Interpretive Ranges: Deficiency: <20.0 ng/mL Insufficiency: 20.0 - 29.9 ng/mL Sufficiency: 30.0 - 100.0 ng/mL Toxicity: >100.0 ng/mL Blood VENOUS BLOOD / Unknown Venipuncture / Unknown 06/24/2022 12:49 EST 07/01/2022 12:50 EST Rina XIE CHEMISTRY & BLOOD GAS ORDERAB LES Final Result [facility] [address] [place] [address] documented in this encounter Visit Diagnoses Diagnosis Vitamin D deficiency- Primary Unspecified vitamin D deficiency documented in this encounter Care Teams Meat Processor Relationship Specialty Start Date End Date Maura Bee MD [address] [place] [address] PCP - General 05/12/15 documented as of this encounter
--- OUTSIDE RECORDS SUMMARY | 2025-04-25 20:05 | XMS_ITS | Clinical Summary ---
Author Organization [facility] Address [address] [place] [address] Care Team Providers Care Proposal Coordinator Name Role Phone Maura Bee MD Primary Care Provider [phone] Social History Tobacco Use Types Packs/Day Years Used Date Smoking Tobacco: Never Assessed Comments Unknown Sex and Gender Information Value Date Recorded Sex Assigned at Not on file Legal Sex Female 18:20 EST Gender Identity Not on file Sexual Orientation Not on file Plan of Treatment Health Maintenance Due Date Last Done Comments Hepatitis C Screen 1997 Hepatitis B Vaccine (1 of 3 - 19+ 3-dose series) 11/10 COVID-19 Vaccine ( season) 2024 Insurance [facility] Care Teams Proposal Coordinator Relationship Specialty Start Date End Date Maura Bee MD [address] [place] [address] PCP - General 05/12/15
--- OUTSIDE RECORDS SUMMARY | 2025-04-25 20:05 | XMS_ITS | Encounter Summary ---
Author Organization [facility] Address [address] [place] [address] Care Team Providers Care Store Administrator Name Role Phone Maura Bee MD Primary Care Provider [phone] Encounter Details Date Type Department Care Team (Late st Contact Info) Description 07/01/2022 Orders Only [facility] [address] [place] [address] Rina Mccarthy PA [address] [place] [address] Vitamin D deficiency Social History Tobacco Use Types Packs/Day Years [...] Name Priority Date/Time Associated Diagnosis Comments VITAMIN D (25,OH) Routine 06/24/2022 12: 49 EST Vitamin D deficiency documented in this encounter Results * VITAMIN D (25,OH) (06/24/2022 12:49 EST) 25OH Vitamin D Tot 53 30 - 100 ng/mL 07/01/2022 14:26 EST [facility] Comment: Vitamin D 25,OH Interpretive Ranges: Deficiency: <20.0 ng/mL Insufficiency: 20.0 - 29.9 ng/mL Sufficiency: 30.0 - 100.0 ng/mL Toxicity: >100.0 ng/mL Blood VENOUS BLOOD / Unknown Venipuncture / Unknown 06/24/2022 12:49 EST 07/01/2022 12:50 EST us Rina XIE CHEMISTRY & BLOOD GAS ORDERAB LES Final Result Performing Organization Address City/State/[facility] Co de Phone Number [facility] [address] [place] [address] documented in this encounter Visit Diagnoses Diagnosis Vitamin D deficiency Unspecified vitamin D deficiency documented in this encounter Care Teams Store Administrator Relationship Specialty Start Date End Date Maura Bee MD [address] [place] [address] PCP - General 05/12/15 documented as of this encounter
--- OUTSIDE RECORDS SUMMARY | 2025-04-25 20:05 | XMS_ITS | Encounter Summary ---
Author Organization [facility] Address [address] [place] [address] Care Team Providers Care Senior Computer Specialist Name Role Phone Maura Bee MD Primary Care Provider [phone] Encounter Details Date Type Department Care Team (Late st Contact Info) Description 06/24/2022 Community Orders [facility] [address] [place] [address] Rina Mccarthy PA [address] [place] [address] Routine general medical examination at [...] 211 - 911 pg/mL 06/24/2022 14:13 EST [facility] Blood VENOUS BLOOD / Unknown Venipuncture / Unknown 06/24/2022 7:00 EST 06/24/2022 12:44 EST Narrative [facility] - 06/24/2022 14:13 EST The results of this assay can be falsely elevated due to the consumption of Biotin. Rina XIE CHEMISTRY & BLOOD GAS ORDERAB LES Final Result [facility] [address] [place] [address] * COMPREHENSIVE METABOLIC PANEL (CMP) (06/24/2022 7:00 EST) Sodium 140 136 - 145 mmol/L 06/24/2022 13:20 [facility] Potassium 4.2 3.5 - 5.0 mmol/L 06/24/2022 13:20 [facility] Chloride 105 96 - 110 mmol/L 06/24/2022 13:20 [facility] CO2 Total 24 22 - 32 mmol/L 06/24/2022 13:20 [facility] Glucose 78 70 - 100 mg/dL 06/24/2022 13:20 [facility] BUN 13 10 - 26 mg/dL 06/24/2022 13:20 [facility] Creatinine 0.58 0.52 - 1.04 mg/dL 06/24/2022 13:20 [facility] eGFR 130 >60 mL/min/1.7 3m2 06/24/2022 13:20 [facility] Total Protein 7.3 6.3 - 8.2 g/dL 06/24/2022 13:20 [facility] Albumin 4.3 3.4 - 4.9 g/dL 06/24/2022 13:20 [facility] Alkaline Phosphatase 86 38 - 126 U/L 06/24/2022 13:20 [facility] AST 23 15 - 46 U/L 06/24/2022 13:20 [facility] ALT 17 <35 U/L 06/24/2022 13:20 [facility] Bilirubin, Total 0.2 <1.4 mg/dL 06/24/20 13:20 [facility] Calcium 8.8 8.5 - 10.5 mg/dL 06/24/2022 13:20 [facility] Albumin/Globulin Ratio 1.4 1.0 - 2.5 06/24/2022 13:20 [facility] Anion Gap 11 5 - 14 06/24/2022 13:20 [facility] Blood VENOUS BLOOD / Unknown Venipuncture / Unknown 06/24/2022 7:00 EST 06/24/2022 12:44 EST us Rina XIE CHEMISTRY & BLOOD GAS ORDERAB LES Final Result Performing Organization Address City/[facility]/ZIP Co de Phone Number [facility] [address] [place] [address] * LIPID PROFILE (INCLUDES CHOLESTEROL, TRIGLYCERIDES, HDL, LDL) (06/24/2022 7:00 EST) Cholesterol 138 <200 mg/dL 06/24/2022 13:20 [facility] Comment:Note that therapeuti c goals will differ between patients based on cardiac risk factors and current medical therapy. HDL 52 >=50 mg/dL 06/24/2022 13:20 [facility] Comment:Note that therapeuti c goals will differ between patients based on cardiac risk factors and current medical therapy. LDL, Calculated 66 <160 mg/dL 13:20 [facility] Comment:Note that therapeuti c goals will differ between patients based on cardiac risk factors and current medical therapy. Triglyceride 101 <=150 mg/dL 06/24/2022 13:20 [facility] Comment:Note that therapeuti c goals will differ between patients based on cardiac risk factors and current medical therapy. Chol/HDL Ratio 2.7 See Note 06/24/2022 13:20 [facility] Comment: NOTE: Desirable Ratio = <4.1 Patient At Risk Ratio = >5.0(Males) >6.0(Females) Non HDL Cholesterol 86 <160 mg/dL 06/24/2022 13:20 [facility] Comment:Note that therapeuti c goals will differ between patients based on cardiac risk factors and current medical therapy. Blood VENOUS BLOOD / Unknown Venipuncture / Unknown 06/24/2022 7:00 EST 06/24/2022 12:44 EST us Rina XIE CHEMISTRY & BLOOD GAS ORDERAB LES Final Result [facility] [address] [place] [address] documented in this encounter Visit Diagnoses Diagnosis Routine general medical examination at a health care facility- Primary documented in this encounter Care Teams Senior Computer Specialist Relationship Specialty Start Date End Date Maura Bee MD [address] [place] [address] PCP - General 05/12/15 documented as of this encounter
== END 2025-04-25 18:33 | disposition home or self-care (01) ==
LOC: HO.HWSM 14:00
PROVIDERS: PCP Internal Medicine; Visit Provider Advanced Practice Midwife
DX: Z01.419 Encounter for gynecological examination (general) (routine) without abnormal findings (principal); Z11.3 Encounter for screening for infections with a predominantly sexual mode of transmission; E66.3 Overweight; Z68.29 Body mass index [BMI] 29.0-29.9, adult
CPT/HCPCS: 99385; 99459

== ENCOUNTER 2025-04-25 14:00 | Outpatient (REF) | payer BC, SELFPAY | END 2025-04-25 14:01 | disposition home or self-care (01) | LOC: HO.LAB 14:00 | PROVIDERS: PCP Internal Medicine; Visit Provider Advanced Practice Midwife | DX: Z13.89 Encounter for screening for other disorder (principal) ==

== ENCOUNTER 2025-04-25 16:01 | Outpatient (REF) | payer BC, SELFPAY ==
[2025-04-28 05:10] LABS: Bacterial Vaginosis PCR NEGATIVE (Negative); Candida Group PCR NOT DETECTED (Not Detect); Candida glab krusei PCR NOT DETECTED (Not Detect); Trichomonas vaginalis PCR NOT DETECTED (Not Detect)
[2025-04-28 05:40] LABS: CT PCR NOT DETECTED (Not Detect.); NG PCR NOT DETECTED (Not Detect.)
== END 2025-04-25 16:02 | disposition home or self-care (01) ==
LOC: HO.LNP 16:01
PROVIDERS: Visit Provider Advanced Practice Midwife
DX: Z01.419 Encounter for gynecological examination (general) (routine) without abnormal findings (principal); Z20.2 Contact with and (suspected) exposure to infections with a predominantly sexual mode of transmission
CPT/HCPCS: 81515; 87491; 87591; 88175